=== PATIENT | male | born 1975 | race Asian ===

== ENCOUNTER 2024-12-08 02:47 | Emergency (ER) | payer OTHER, SELFPAY ==
[2024-12-08 02:57] VITALS: BP 149/92; PULSE 75; RESP 18; TEMP 36.7; O2SAT 99; BMI 26.3
--- NOTE | 2024-12-08 05:43 | PC.NURSE ---
Pt is parking his car; will room when he returns to lobby.
--- NOTE | 2024-12-08 06:24 | ED.SKABFB ---
HPI - Skin/Abscess/Foreign Bdy General Chief complaint: Skin/Abscess/Foreign Body Stated complaint: pain in joints hands and feet Time Seen by Provider: 12/08/24 06:19 Source: patient Mode of arrival: Wheelchair Limitations: no limitations History of Present Illness HPI narrative: 49-year-old male we would like moisturizer to his hands. Triage complaint mentioned arthritis but he does not seem to be complaining about any arthritis to me. No fevers or chills. He denies cough shortness of breath. Denies abdominal discomfort. Says that he would like to have a moisturizer for his hands. Patient History Social History Smoking Status: Never smoker Smoking Status: Never smoker Exam Narrative Exam Narrative: GENERAL: Patient dressed in helmet with headphones over the helmet HEAD: Atraumatic. Normocephalic. EYES: No scleral icterus. No injection or drainage. ENT: No obvious facial injuries, nose symmetrical without swelling, no blood at alae NECK: Trachea midline. Non tender CARDIOVASCULAR: Regular rate and rhythm without murmurs, gallops, or rubs. RESPIRATORY: Clear to auscultation. Breath sounds equal bilaterally. No wheezes, rales, or rhonchi. GASTROINTESTINAL: Abdomen soft, non-tender, nondistended. EXTREMITIES: No edema or joint tenderness. No gross deformities hands, no joint swelling or warmth obvious. NEURO: AOx3. Clear speech. Motor functions grossly nonfocal SKIN: Dry skin changes to both hands, no cellulitis changes, no gross deformities. Initial Vital Signs Initial Vital Signs: Vital Signs Temperature 98.1 F 12/08/24 02:57 Pulse Rate 75 12/08/24 02:57 Respiratory Rate 18 12/08/24 02:57 Blood Pressure 149/92 H 12/08/24 02:57 Pulse Oximetry 99 12/08/24 02:57 Oxygen Delivery Method Room Air 12/08/24 02:57 Course Vital Signs Vital signs: Vital Signs - 8 hr 12/08/24 02:57 Temperature 98.1 F Pulse Rate 75 Respiratory Rate 18 Blood Pressure 149/92 H Pulse Oximetry 99 Oxygen Delivery Method Room Air MDM - Skin/Abscess/Foreign Bdy MDM Narrative Medical decision making narrative: 49-year-old male with request for moisturizer for dry skin changes to his hands. Dry skin changes noted, without eczema, no dyshidrotic eczema. No cellulitis changes. Moisturizer tube dispensed to the patient to use on his hands. Discharged home. Discharge Plan Departure Patient Disposition: Home Clinical Impression: Dry skin dermatitis Activity Restrictions/Additional Instructions: Request for moisturizer for dry skin hands. Dry skin changes of both hands noted, no obvious infection changes at this time. Moisturizer tube dispensed to use on his hands or any other areas of his body for dry skin as needed. Recheck advised with your regular doctor if not improved in the next couple of days. Stand Alone Forms: Patient Portal/API/Survey
== END 2024-12-08 06:55 | disposition home or self-care (01) ==
PROVIDERS: Emergency Provider Emergency Medicine
DX: L85.3 Xerosis cutis (principal)
CPT/HCPCS: 99281

== ENCOUNTER 2025-03-23 23:20 | Emergency (ER) | payer OTHER, SELFPAY ==
[2025-03-23 23:25] VITALS: BP 144/89; PULSE 61; RESP 15; TEMP 36.2; O2SAT 98; BMI 26.0
--- NOTE | 2025-03-23 23:39 | ED.PSYCH ---
HPI - Psych General Chief Complaint: Medical Clearance Stated Complaint: mental dorothy eval needed Time Seen by Provider: 03/23/25 23:25 Source: patient Mode of arrival: Ambulatory History of Present Illness HPI Narrative: 41-year-old male no significant past medical history presenting for mental health evaluation, he states that he was given a talent acquisition project manager a mandated mental health evaluation from court, states that he is only here because he is requesting a note from some mental health provider to provide to the court, he denies any symptoms or complaints at this time, he states he is merely here to obtain some form of letter that he has been ?evaluated for his mental health he denies any suicidal homicidal ideations. Related Data Home Medications Medication Instructions Recorded Confirmed olanzapine 10 mg tablet 10 mg PO BEDTIME 03/23/25 03/23/25 Allergies Allergy/AdvReac Type Severity Reaction Status Date / Time No Known Drug Allergies Allergy Verified 03/23/25 23:22 Review of Systems Review of Systems Narrative: General: Requesting mental health evaluation paperwork, Denies fever, chills, weight loss HEENT: Denies headache, eye drainage, eye irritation, head trauma, sore throat, voice change Cardiovascular: Denies any chest pain, palpitations, tachycardia Respiratory: Denies any shortness of breath, cough, wheeze, stridor GI/: Denies any abdominal pain, nausea, vomiting, diarrhea, bright red blood per rectum, melanotic stools, urinary frequency, urinary retention, dysuria, hematuria MSK: Denies any joint pain, muscle pains, swelling Skin: Denies any rashes, lesions, discoloration Neuro: Denies any headache, lightheadedness, dizziness, fainting, weakness Psych: Denies SI/HI Patient History Social History Smoking Status: Never smoker Smoking Status: Never smoker Exam Narrative Exam Narrative: General: Cooperative, well-developed, not in acute distress HEENT: Normocephalic, atraumatic, PERRLA, normal sclera, eyelids normal Neck: Active full range of motion, atraumatic Chest: Normal to inspection, negative crepitus, no overlying erythema ecchymosis Respiratory: Normal respiratory effort, not in acute respiratory distress, clear to auscultation bilaterally negative cough, wheeze, tachypnea, rhonchi, rales Cardiology: Regular rate rhythm negative gallop, murmur, rubs GI/: No tenderness to palpation, soft, non rigid, normal to inspection, exam deferred MSK: Full active range of motion in all 4 extremities, atraumatic, no tenderness to palpation of any bony prominences Skin: No rashes or lesions noted Neuro: Alert awake oriented x3, moves all 4 extremities spontaneously, cranial nerves intact, able to answer all questions appropriately follows commands appropriately Psych: Cooperative, negative suicidal or homicidal ideations Initial Vital Signs Initial Vital Signs: Vital Signs Temperature 97.2 F L 03/23/25 23:25 Pulse Rate 61 03/23/25 23:25 Respiratory Rate 15 03/23/25 23:25 Blood Pressure 144/89 H 03/23/25 23:25 Pulse Oximetry 98 03/23/25 23:25 Oxygen Delivery Method Room Air 03/23/25 23:25 Course Orders Ordered: ED Orders 03/23/25 23:36 Consult to [employer] CE[employer]AR WORKER - Outpatient Pharmacy Manager Stat Vital Signs Vital signs: Vital Signs - 8 hr 03/23/25 23:25 Temperature 97.2 F L Pulse Rate 61 Respiratory Rate 15 Blood Pressure 144/89 H Pulse Oximetry 98 Oxygen Delivery Method Room Air MDM - Psych Differential Diagnosis Differential diagnosis: Likely bipolar disorder, depression and acute anxiety MDM Narrative Medical decision making narrative: 49-year-old male no significant past medical history presenting for mental health evaluation note, he states that he was told by a talent acquisition project manager that he needs paperwork that he has been evaluated for mental health, at time of evaluation patient is without any suicidal or homicidal ideation he states that he is just here to get some form of paperwork to say that he has been evaluated for his mental health, I have informed him that we are unable to provide this, I state that he can talk to a social media sr strategy manager in the morning however they would not be able to provide this for him, if he is in need of a official mental health evaluation he needs to follow up with a psychiatrist or therapist as well as his primary care doctor, he verbalized understanding of this and agrees to being discharged home with outpatient follow up Discharge Plan Departure Patient Disposition: Home Clinical Impression: Normal exam Activity Restrictions/Additional Instructions: Unfortunately we do not have a mental health evaluater here, please reach out to your PCP to follow up in order to be evaluated for this Please read the discharge instructions sheet carefully and bring all papers to all doctor follow-up visits, as it may contain information that your doctor may want to see. Disease processes change and evolve, if your symptoms worsen or if you develop any new symptoms that are concerning to you please return for evaluation. Your evaluation today does not show any evidence of any life-threatening/serious illnesses requiring admission to the hospital or surgery. Please follow-up with your doctor for re-evaluation in approximately 1 day. Seek immediate medical attention for any worrisome symptoms. *If you do not have a primary care provider please contact the [facility] Resource line at [phone]. They will ask some questions about your medical history and help get you set up with a doctor in the community. Prescriptions: No Action olanzapine 10 mg Tablet 10 mg PO BEDTIME Stand Alone Forms: Patient Portal/API/Survey
== END 2025-03-23 23:52 | disposition home or self-care (01) ==
LOC: ED 23:53
PROVIDERS: Emergency Provider Student in an Organized Health Care Education/Training Program
DX: Z71.1 Person with feared health complaint in whom no diagnosis is made (principal)
CPT/HCPCS: 99281